=== PATIENT | male | born 1995 | race American Indian/Alaskan Native ===

== ENCOUNTER 2019-12-29 21:25 | Emergency (ER) | payer SELFPAY ==
[2019-12-29 21:57] VITALS: BP 136/97
--- NOTE | 2019-12-29 22:57 | XRay Report ---
EXAMINATION: Right wrist radiograph, 3 views CLINICAL INFORMATION: Right wrist pain. No history of trauma is given COMPARISON: None. FINDINGS: There is no evidence of acute bony fracture or dislocation of the right wrist. No focal sof t tissue swelling is identified. Signer Name: Cha Hernandez MD Signed: 12/29/2019 10:53 PM Workstation Name: [id number]
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
== END 2019-12-29 23:48 ==
LOC: ED 21:25
DX: S69.91XA Unspecified injury of right wrist, hand and finger(s), initial encounter (principal); F17.200 Nicotine dependence, unspecified, uncomplicated; Z79.899 Other long term (current) drug therapy; X58.XXXA Exposure to other specified factors, initial encounter; Y93.89 Activity, other specified; Y92.89 Other specified places as the place of occurrence of the external cause; Y99.8 Other external cause status

== ENCOUNTER 2020-08-18 17:18 | Emergency (ER) | payer OTHER ==
[2020-08-18 17:49] VITALS: BP 144/91
[2020-08-18] MEDS ORDERED: IBUPROFEN 600 MG TAB PO ONE (20:39)
--- NOTE | 2020-08-18 20:42 | Emergency Department Report ---
ED Laceration HPI - [facility] Chief Complaint: Laceration/Recheck/Suture Stated Complaint: INJURY RT THUMB Time Seen by Provider: 08/18/20 20:36 Occurred When: Today Location: Upper Extremity (Right thumb) Severity: moderate Tetanus Status: Up to Date Laceration Symptoms: Yes Pain, No Foreign Body Sensation, No Numbness, No Weakness Other History: 25-year-old -Portuguese male who is in custody presents to the emergency room reporting he had injured his right thumb by smashing it in a door. Patient reports his last tetanus was 8 months ago when he was incarcerated. Patient denies any past medical history. He reports a surgical history with hardware to his right wrist and right ankle. He currently takes no medications on a daily basis and has no known drug allergies. ED Review of Systems ROS: Stated complaint: INJURY RT THUMB Other details as noted in HPI ED Past Medical Hx - Past Medical History Previous Medical History?: No - Surgical History Past Surgical History?: Yes Additional Surgical History: Hardware right wrist and right ankle. - Social History Smoking Status: Never Smoker Substance Use Type: None - Medications Home Medications: Home Medications Medication Instructions Recorded Confirmed Last Taken Type Ibuprofen [Motrin 600 MG tab] 600 mg PO Q8H PRN #15 tablet 12/29/19 Unknown Rx HYDROcodone/APAP 7.5-325 [[place] 1 each PO Q6HR PRN #12 tablet 08/18/20 Unknown Rx 7.5/325] Ibuprofen [Motrin 800 MG tab] 800 mg PO Q8HR PRN #30 tablet 08/18/20 Unknown Rx cephALEXin [Keflex] 500 mg PO Q8HR 10 Days #30 cap 08/18/20 Unknown Rx Laceration Physical Exam - Exam General: Vital signs noted. No distress. Alert and acting appropriately. Wound Length (cm): 2 (Right thumb degloved) Laceration Location: Upper Extremity (Right thumb) Laceration Exam: Yes Exposed Tendon, Vessel, or Nerve, Yes Normal Distal CMS, No Foreign Body, No Tendon Injury ED Course Vital Signs 08/18/20 17:35 Temperature 98.4 F Pulse Rate 81 Respiratory 16 Rate Blood Pressure 144/91 O2 Sat by Pulse 99 Oximetry ED Medical Decision Making - Radiology Data Radiology results: report reviewed [facility] [address] [place] [address] XRay Report Signed Patient: ALYCE AZEVEDO MR#: [id number] 6 : 1995 Acct:[id number] Age/Sex: 25 / M ADM Date: 08/18/20 Loc: ED Attending Dr: Ordering Physician: SUSANNA VEGA Date of Service: 08/18/20 Procedure(s): XR finger(s) 2+V RT Accession Number(s): [id number] cc: SUSANNA VEGA Fluoro Time In Minutes: RIGHT FINGER(S) 4 VIEW(S) INDICATION / CLINICAL INFORMATION: smashed right thumb in door COMPARISON: None available. FINDINGS: BONES / JOINT(S): No acute fracture or subluxation. No significant arthritis. SOFT TISSUES: Degloving injury to the tip of the thumb with exposure of the tip of the thumb distal phalanx. Soft tissue swelling and edema is noted involving the remaining soft tissues at the tip of the thumb. ADDITIONAL FINDINGS: None. Signer Name: Fabien Frederick MD Signed: 08/18/2020 10:01 PM Workstation Name: [id number] Transcribed By: Dictated By: FABIEN FREDERICK Electronically Authenticated By: FABIEN FREDERICK - Medical Decision Making 25-year-old -Portuguese male who is in custody presents to the emergency room reporting he had injured his right thumb by smashing it in a door. Patient reports his last tetanus was 8 months ago when he was incarcerated. Patient denies any past medical history. He reports a surgical history with hardware to his right wrist and right ankle. He currently takes no medications on a daily basis and has no known drug allergies. X-ray ordered by this provider as well as ibuprofen. X-ray shows degloved of the right thumb no fracture. Patient has some pain in water and Betadine will clean place Xerofoam petroleum nonadherent dressing and a clean gauze dressing. Patient be discharged home on Keflex [place] and ibuprofen. Patient instructed to follow-up in the medic unit at the detention in 3 days. To keep the wound clean and dry bandage change twice a day or sooner if gets dirty. Return back to the emergency room any concerns for infection. Critical care attestation.: If time is entered above; I have spent that time in minutes in the direct care of this critically ill patient, excluding procedure time. ED Disposition Clinical Impression: Degloving injury, Injury of right thumb Disposition: DC-01 TO HOME OR SELFCARE Is pt being admited?: No Does the pt Need Aspirin: No Condition: Stable Additional Instructions: Please keep wound clean and dry. Dressing change twice a day or sooner if dirty. Complete antibiotics. Pain medication as needed. Increase your water intake. [facility] days. Prescriptions: cephALEXin [Keflex] 500 mg PO Q8HR 10 Days #30 cap Ibuprofen [Motrin 800 MG tab] 800 mg PO Q8HR PRN #30 tablet PRN Reason: Pain , Severe (7-10) HYDROcodone/APAP 7.5-325 [[place] 7.5/325] 1 each PO Q6HR PRN #12 tablet PRN Reason: Pain Referrals: PRIMARY CARE, [Primary Care Provider] - 3-5 Days
--- NOTE | 2020-08-18 22:05 | XRay Report ---
RIGHT FINGER(S) 4 VIEW(S) INDICATION / CLINICAL INFORMATION: smashed right thumb in door COMPARISON: None available. FINDINGS: BONES / JOINT(S): No acute fracture or subluxation. No significant arthritis. SOFT TISSUES: Degloving injury to the tip of the thumb with exposure of the tip of the thumb distal p halanx. Soft tissue swelling and edema is noted involving the remaining soft tissues at the tip of th e thumb. ADDITIONAL FINDINGS: None. Signer Name: Samm Davidson MD Signed: 08/18/2020 10:01 PM Workstation Name: [id number]
== END 2020-08-18 23:05 | disposition home or self-care (01) ==
LOC: ED 17:18
DX: S69.81XA Other specified injuries of right wrist, hand and finger(s), initial encounter (principal); Z98.890 Other specified postprocedural states; Z79.1 Long term (current) use of non-steroidal anti-inflammatories (NSAID); Z79.899 Other long term (current) drug therapy; X58.XXXA Exposure to other specified factors, initial encounter; Y93.89 Activity, other specified; Y92.89 Other specified places as the place of occurrence of the external cause; Y99.8 Other external cause status
CPT/HCPCS: 99283